=== PATIENT | male | born 1955 | race Caucasian/White ===

== ENCOUNTER 2018-07-12 10:31 | Emergency (ER) | payer OTHER | END 2018-07-12 13:41 | disposition home or self-care (01) | LOC: FTE 10:31 | DX: S40.012A Contusion of left shoulder, initial encounter (principal); I10 Essential (primary) hypertension; W18.39XA Other fall on same level, initial encounter; Y92.9 Unspecified place or not applicable | CPT/HCPCS: 73030; 99283-25 ==